=== PATIENT | female | born 1995 | race Caucasian/White ===

== ENCOUNTER → 2023-03-06 | Outpatient (CLI) | payer OTHER | END | disposition home or self-care (01) | LOC: LAB 18:41 → LAB SHORT 18:41 | DX: N39.0 Urinary tract infection, site not specified (principal) | CPT/HCPCS: 87086 ==

== ENCOUNTER 2024-01-22 02:51 | Emergency (ER) | payer OTHER ==
[~2024-01-22] VITALS: Ht 162.6 cm; Wt 62.1 kg
[2024-01-22] MEDS ORDERED: PRENATAL TABLE1 EAC2 PO (03:30)
[2024-01-22 04:53] LABS: Source, Urine Clean Catch
[2024-01-22 04:57] LABS: BASOPHILS ABSOLUTE AUTO 0.03 K/mm3 (0.00-0.23); BASOPHILS PERCENT AUTO 0 % (0-2); EOSINOPHILS ABSOLUTE AUTO 0.03 K/mm3 (0.00-0.68); EOSINOPHILS PERCENT AUTO 0 % (0-6); Hematocrit 34.6 % (33.0-51.0); Hemoglobin 11.9 g/dL (11.5-16.0); IMMATURE GRAN ABSOLUTE AUTO 0.04 K/mm3 (0.00-0.10); IMMATURE GRAN PERCENT AUTO 1 % (0-1); LYMPHOCYTES ABSOLUTE AUTO 0.57 K/mm3 (0.84-5.20); LYMPHOCYTES PERCENT AUTO 7 % (21-46); MONOCYTES ABSOLUTE AUTO 0.43 K/mm3 (0.16-1.47); MONOCYTES PERCENT AUTO 5 % (4-13); Mean Corpuscular HGB 31.3 pg (26.0-34.0); Mean Corpuscular HGB Conc 34.4 g/dL (31.5-36.5); Mean Corpuscular Volume 91 fL (80-100); Mean Platelet Volume 10.7 fL (9.1-12.4); NEUTROPHILS ABSOLUTE AUTO 6.92 K/mm3 (1.96-9.15); NEUTROPHILS PERCENT AUTO 86 % (41-73); Platelet Count 144 K/mm3 (150-400); RDW Coefficient Variation 13.5 % (11.7-14.2); RDW Standard Deviation 45.1 fL (35.1-46.3); White Blood Cell Count 8.02 K/mm3 (4.00-11.30)
[2024-01-22 05:02] LABS: Bilirubin, Urine Neg (Neg); Blood, Urine Neg (Neg); Glucose Qualitative, Urine Neg (Neg); Ketones, Urine Neg (Neg); Leukocyte Esterase, Urine 3+ (Neg); Nitrite, Urine Neg (Neg); Protein, Urine Neg (Neg); Specific Gravity, Urine 1.005 (1.003-1.022); Urobilinogen, Urine NORM (Normal)
[2024-01-22 05:11] LABS: Appearance, Urine Hazy (Clear); Color, Urine Yellow (P-Yellow)
[2024-01-22 05:12] LABS: Amorphous Light (0-Heavy); Bacteria Mod /hpf; Red Blood Cells, Urine Not Seen /hpf (0-2); Squamous Epithelial Cells Few /hpf (Few)
[2024-01-22 05:43] LABS: Albumin, Blood 3.2 g/dL (3.4-5.0); Albumin/Globulin Ratio 0.9 (0.8-1.8); Bilirubin, Total 0.5 mg/dL (0.1-1.0); Bun/Creatinine Ratio 16.8 (12.0-20.0); Calcium, Blood 8.6 mg/dL (8.5-10.1); Creatinine, Blood 0.54 mg/dL (0.40-1.00); Globulin, Blood 3.5 g/dL (2.2-4.0); Potassium, Blood 3.8 mmol/L (3.5-5.5); Total Protein, Blood 6.7 g/dL (6.4-8.2)
[2024-01-22] MEDS ORDERED: Metoclopramide HCl 5MG / ML 2ML Vial IV ONE (06:10)
[2024-01-22] MEDS ORDERED: D5W-NS 500 ML IV SCH (06:10)
[2024-01-22] MEDS ORDERED: Droperidol 5 mg/2 ml Vial IV ONE (06:35)
[2024-01-22] MEDS ORDERED: Mag Hydrox/AL Hydrox/Simeth 30 ML UDC PO ONE (06:35)
[2024-01-22] MEDS ORDERED: Ketorolac Tromethamine 30mg Vial IV ONE (06:35)
[2024-01-22 08:09] VITALS: BP 123/70
[2024-01-22] MEDS ORDERED: FAMO20 PO (08:09)
[2024-01-22] MEDS ORDERED: CEFD300 PO (08:09)
[2024-01-22] MEDS ORDERED: ONDA4ODT MM (08:09)
== END 2024-01-22 08:14 | disposition home or self-care (01) ==
LOC: ER 02:51
PROVIDERS: Emergency Medicine
DX: O23.02 Infections of kidney in pregnancy, second trimester (principal); O99.612 Diseases of the digestive system complicating pregnancy, second trimester; K29.70 Gastritis, unspecified, without bleeding; Z79.899 Other long term (current) drug therapy; Z3A.16 16 weeks gestation of pregnancy
CPT/HCPCS: 76705; 76815; 80053; 81001; 83690; 84702; 85025; 87086; 96374; 96375; 99284-25; A9270; J1790; J1885; J2765; J7042

== ENCOUNTER → 2024-06-10 | Outpatient (CLI) | payer OTHER ==
[~2024-06-10] MED LIST: CEFD300 PO; FAMO20 PO; ONDA4ODT MM; PRENATAL TABLE1 EAC2 PO
== END | disposition home or self-care (01) ==
LOC: LAB 12:36 → LAB SHORT 12:36
DX: Z34.83 Encounter for supervision of other normal pregnancy, third trimester (principal)
CPT/HCPCS: 87081; 87150

== ENCOUNTER 2024-06-30 19:05 | Inpatient (IN) | payer OTHER ==
[~2024-06-30] VITALS: Ht 162.6 cm; Wt 79.5 kg
[2024-06-30 19:59] VITALS: BP 153/87
[2024-06-30 20:14] VITALS: BP 149/82
[2024-06-30 20:54] VITALS: BP 154/87
[2024-06-30] MEDS ORDERED: FentaNYL Citrate 50 MCG/ML 2 ML Injection ONE (20:59)
[2024-06-30] MEDS ORDERED: ePHEDrine Sulfate 50 MG/ML 1ML Injection XX PRN (22:05)
[2024-06-30] MEDS ORDERED: Misoprostol 25 MCG Tab VAG PRN (22:05)
[2024-06-30] MEDS ORDERED: Lactated Ringer's 1,000 ML IV SCH (22:05)
[2024-06-30] MEDS ORDERED: OXYTOCIN/RINGER'S LACTATE 500 ML IV SCH ×2 (22:05)
[2024-06-30] MEDS ORDERED: Tranexamic Acid 100 ML IV SCH (22:05)
[2024-06-30] MEDS ORDERED: Carboprost Tromethamine 250 MCG/ML 1ML Amp IM PRN (22:05)
[2024-06-30] MEDS ORDERED: Methylergonovine Maleate 0.2MG / ML 1ML Amp IM PRN (22:05)
[2024-06-30] MEDS ORDERED: Lactated Ringer's 1,000 ML IV PRN ×3 (22:05→22:10)
[2024-06-30] MEDS ORDERED: Misoprostol 200 MCG Tab PR PRN (22:05)
[2024-06-30] MEDS ORDERED: Acetaminophen 500 MG Tab PO PRN (22:05)
[2024-06-30] MEDS ORDERED: Ondansetron HCl 2 MG / ML 2ML Vial IV PRN (22:05)
[2024-06-30] MEDS ORDERED: Misoprostol 200 MCG Tab BC PRN (22:05)
[2024-06-30] MEDS ORDERED: Oxytocin 10 Unit / ML Vial IM PRN (22:05)
[2024-06-30] MEDS ORDERED: OXYTOCIN/RINGER'S LACTATE 500 ML IV PRN (22:05)
[2024-06-30] MEDS ORDERED: FentaNYL 2mcg/ml-Bup 0.1% Epd 250 ML EPI PRN (22:05)
[2024-06-30] MEDS ORDERED: Calcium Carbonate 500 MG Tab Chew PO PRN (22:10)
[2024-06-30 22:11] VITALS: BP 133/81
[2024-06-30 22:14] LABS: BASOPHILS ABSOLUTE AUTO 0.03 K/mm3 (0.00-0.23); BASOPHILS PERCENT AUTO 0 % (0-2); EOSINOPHILS ABSOLUTE AUTO 0.03 K/mm3 (0.00-0.68); EOSINOPHILS PERCENT AUTO 0 % (0-6); Hematocrit 32.8 % (33.0-51.0); Hemoglobin 11.1 g/dL (11.5-16.0); IMMATURE GRAN ABSOLUTE AUTO 0.04 K/mm3 (0.00-0.10); IMMATURE GRAN PERCENT AUTO 1 % (0-1); LYMPHOCYTES ABSOLUTE AUTO 1.38 K/mm3 (0.84-5.20); LYMPHOCYTES PERCENT AUTO 17 % (21-46); MONOCYTES ABSOLUTE AUTO 0.46 K/mm3 (0.16-1.47); MONOCYTES PERCENT AUTO 6 % (4-13); Mean Corpuscular HGB 29.9 pg (26.0-34.0); Mean Corpuscular HGB Conc 33.8 g/dL (31.5-36.5); Mean Corpuscular Volume 88 fL (80-100); Mean Platelet Volume 12.7 fL (9.1-12.4); NEUTROPHILS ABSOLUTE AUTO 6.41 K/mm3 (1.96-9.15); NEUTROPHILS PERCENT AUTO 77 % (41-73); Platelet Count 119 K/mm3 (150-400); RDW Coefficient Variation 15.1 % (11.7-14.2); RDW Standard Deviation 49.1 fL (35.1-46.3); Red Blood Cell Count 3.71 M/mm3 (3.80-5.20); White Blood Cell Count 8.35 K/mm3 (4.00-11.30)
[2024-06-30 22:27] LABS: Albumin, Blood 3.2 g/dL (3.4-5.0); Albumin/Globulin Ratio 0.9 (0.8-1.8); Bilirubin, Total 0.4 mg/dL (0.1-1.0); Bun/Creatinine Ratio 15.3 (12.0-20.0); Calcium, Blood 8.5 mg/dL (8.5-10.1); Creatinine, Blood 0.65 mg/dL (0.40-1.00); Globulin, Blood 3.6 g/dL (2.2-4.0); Potassium, Blood 3.6 mmol/L (3.5-5.5); Total Protein, Blood 6.8 g/dL (6.4-8.2)
[2024-07-01] VITALS (31 sets, daily range): BP systolic 109–147; BP diastolic 55–88
[2024-07-01] MEDS ORDERED: Zolpidem Tartrate 5 MG Tab PO ONE (00:25)
[2024-07-01 01:03] LABS: Creatinine, Urine Random 59.9 mg/dL (27.00-270.00); Protein, Urine Random 13.4 mg/dL (0.0-11.9); Protein/Creat Ratio, Ur Random 0.2
[2024-07-01] MEDS ORDERED: FentaNYL Citrate 50 MCG/ML 2 ML Injection IV PRN (08:30)
[2024-07-01] MEDS ORDERED: FentaNYL Citrate 50 MCG/ML 2 ML Injection ONE (09:02)
[2024-07-01] MEDS ORDERED: Lanolin Cream TOP PRN (13:20)
[2024-07-01] MEDS ORDERED: Docusate Sodium 100 MG Cap PO PRN (13:20)
[2024-07-01] MEDS ORDERED: Carboprost Tromethamine 250 MCG/ML 1ML Amp IM PRN (13:20)
[2024-07-01] MEDS ORDERED: Acetaminophen 500 MG Tab PO PRN (13:20)
[2024-07-01] MEDS ORDERED: Benzocaine Topical Anesthetic Spray 60GM TOP PRN (13:20)
[2024-07-01] MEDS ORDERED: FLU VACC TS2024-25(6MOS UP)/PF 45 MCG/0.5 ML SYRINGE IM SCH (13:25)
[2024-07-01] MEDS ORDERED: OXYTOCIN/RINGER'S LACTATE 500 ML IV SCH (13:25)
[2024-07-01] MEDS ORDERED: Oxytocin 10 Unit / ML Vial IM ONE (13:25)
[2024-07-01] MEDS ORDERED: Misoprostol 200 MCG Tab PR PRN (13:25)
[2024-07-01] MEDS ORDERED: Methylergonovine Maleate 0.2MG / ML 1ML Amp IM PRN (13:25)
[2024-07-01] MEDS ORDERED: Witch Hazel/Glycerin PADS TOP PRN (13:25)
[2024-07-01] MEDS ORDERED: Lactated Ringer's 1,000 ML IV SCH (13:30)
[2024-07-01] MEDS ORDERED: Ibuprofen 400 MG Tab PO PRN (13:30)
[2024-07-01] MEDS ORDERED: Ketorolac Tromethamine 30mg Vial IV PRN (13:30)
[2024-07-02 04:41] VITALS: BP 123/63
[2024-07-02 08:31] VITALS: BP 123/70
[2024-07-02] MEDS ORDERED: Prenatal Vit/FE Fumarate/FA 1 Tab PO SCH (09:00)
[2024-07-02 15:18] VITALS: BP 138/86
== END 2024-07-02 15:32 | disposition home or self-care (01) | DRG 807 ==
LOC: BC 19:05 → OBS 19:05 → BC 19:27
PROVIDERS: ADMIT Advanced Practice Midwife
PROC: 10E0XZZ Delivery of Products of Conception, External Approach (ICD-10-PCS; principal; 2024-07-01)
PROC: 0KQM0ZZ Repair Perineum Muscle, Open Approach (ICD-10-PCS; 2024-07-01)
DX: O99.344 Other mental disorders complicating childbirth (principal); O99.892 Other specified diseases and conditions complicating childbirth; R03.0 Elevated blood-pressure reading, without diagnosis of hypertension; Z37.0 Single live birth; F41.9 Anxiety disorder, unspecified; Z3A.39 39 weeks gestation of pregnancy; Z87.59 Personal history of other complications of pregnancy, childbirth and the puerperium; O70.1 Second degree perineal laceration during delivery
CPT/HCPCS: 36415; 51702; 59200; 80053; 82570; 84156; 85025; 86850; 86900; 86901; A9270; J1885; J2405; J2590; J3010; J7120